=== PATIENT | male | born 1995 | race Caucasian/White ===

== ENCOUNTER → 2017-05-08 | Outpatient (REF) | payer BC | LOC: M SFHCLERA 14:11 | PROVIDERS: ATTEND Nurse Practitioner Family | DX: J02.9 Acute pharyngitis, unspecified (principal) ==

== ENCOUNTER → 2020-12-27 | Outpatient (CLI) | payer OTHER ==
--- NOTE | 2020-12-28 04:10 | REP ---
INDICATION: EMPLOYMENT PE SCREENING COMPARISON: None. TECHNIQUE: PA and lateral. FINDINGS: The mediastinum and cardiac silhouette are normal. The lung dale are clear and without acute consolidation, effusion, or pneumothorax. The skeletal structures are intact and normal. IMPRESSION: No acute cardiopulmonary process. <Electronically signed by Chetan Chadwick > 12/28/20 0409
== END ==
LOC: M WUC 15:35
PROVIDERS: ATTEND Family Medicine Adult Medicine
DX: Z02.1 Encounter for pre-employment examination (principal)